=== PATIENT | male | born 2000 | race African-American/Black ===

== ENCOUNTER 2023-07-14 23:38 | Emergency (ER) | payer MEDICAID, OTHER ==
[~2023-07-14] VITALS: Ht 175.3 cm; Wt 82.3 kg
[2023-07-15 00:08] VITALS: BP 131/56; PULSE 61; RESP 17; TEMP 98.3; O2SAT 99
== END 2023-07-15 08:14 | disposition left against medical advice (07) ==
LOC: ER 23:38
DX: Z53.21 Procedure and treatment not carried out due to patient leaving prior to being seen by health care provider (principal)
CPT/HCPCS: 99281

== ENCOUNTER 2023-07-15 23:11 | Emergency (ER) | payer OTHER ==
[~2023-07-15] VITALS: Ht 177.8 cm; Wt 87.0 kg
[2023-07-15 23:21] VITALS: O2SAT 98
[2023-07-15 23:53] VITALS: BP 111/65; PULSE 78; RESP 18; TEMP 98.1
[2023-07-16] MEDS ORDERED: TETANUS AND DIPHTHERIA TOX/PF 0.5ML SYR (ADULT) IM ONE (03:00)
[2023-07-16 03:26] LABS: ALANINE AMINOTRANSFERASE 13 IU/L (10-49); ALBUMIN 4.4 g/dL (3.2-4.8); ASPARTATE AMINOTRANSFERASE 56 IU/L (<34); BILIRUBIN TOTAL 0.8 mg/dL (0.1-1.0); CALCIUM 9.7 mg/dL (8.7-10.4); CARBON DIOXIDE 29 mEq/L (21-32); CHLORIDE 104 mEq/L (98-107); CREATININE 1.1 mg/dL (0.6-1.3); GLUCOSE 87 mg/dL (70-105); POTASSIUM 3.6 mEq/L (3.5-5.1); PROTEIN TOTAL 7.8 g/dL (6.0-8.3); SODIUM 140 mEq/L (136-145); UREA NITROGEN BLOOD 13 mg/dL (9-23)
[2023-07-16 04:41] LABS: ERYTHROCYTE SEDIMENTATION RATE 4 mm/hr (0-15)
[2023-07-16 04:59] LABS: BASOPHILS % 0.4 % (0.0-2.0); EOSINOPHILS % 0.6 % (0.0-5.0); HEMATOCRIT. 44.2 % (42.0-52.0); HEMOGLOBIN. 14.8 g/dL (14.0-18.0); LYMPHOCYTES % 37.5 % (20.0-50.0); MEAN CORPUSCULAR HEMOGLOBIN 31.9 pg (28.0-32.0); MEAN CORPUSCULAR HGB CONC 33.4 g/dL (31.0-37.0); MEAN CORPUSCULAR VOLUME 95.4 fL (80.0-94.0); MEAN PLATELET VOLUME 8.8 fl (7.4-10.4); MONOCYTES % 7.3 % (2.0-8.0); NEUTROPHILS % 54.2 % (40.0-76.0); PLATELET 215 x1000/uL (130-400); RED BLOOD CELL COUNT 4.63 mill/uL (4.7-6.1); RED CELL DISTRIBUTION WIDTH 12.6 % (11.6-14.6); WHITE BLOOD COUNT 8.6 x1000/uL (4.5-11.0)
== END 2023-07-16 05:30 | disposition left against medical advice (07) ==
LOC: ER 23:11
DX: S61.200A Unspecified open wound of right index finger without damage to nail, initial encounter (principal); M79.89 Other specified soft tissue disorders; X58.XXXA Exposure to other specified factors, initial encounter; Y93.89 Activity, other specified; Y92.89 Other specified places as the place of occurrence of the external cause; Y99.8 Other external cause status
CPT/HCPCS: 36415; 73140; 80053; 85025; 85651; 90714; 99284

== ENCOUNTER 2023-07-18 15:21 | Emergency (ER) | payer OTHER ==
[~2023-07-18] VITALS: Ht 180.3 cm; Wt 74.0 kg
[2023-07-18 15:28] VITALS: BP 144/76; PULSE 87; RESP 20; TEMP 98.2; O2SAT 99
[2023-07-18] MEDS ORDERED: BACITRACIN ZINC OINT UDPKT TOP ONE (17:00)
[2023-07-18] MEDS ORDERED: LIDOCAINE HCL/PF 1% 10 MG/ML 5ML VIAL INFIL ONE (17:00)
[2023-07-19] MEDS ORDERED: CEPH500C2 MT (12:08)
[2023-07-19] MEDS ORDERED: SULF1TAB47 MT (12:08)
== END 2023-07-18 18:41 | disposition left against medical advice (07) ==
LOC: ER 15:21
DX: M79.644 Pain in right finger(s) (principal)
CPT/HCPCS: 99281

== ENCOUNTER 2023-07-19 11:05 | Emergency (ER) | payer OTHER ==
[~2023-07-19] VITALS: Ht 175.3 cm; Wt 84.0 kg
[2023-07-19 11:22] VITALS: O2SAT 100
[2023-07-19] MEDS ORDERED: SULF1TAB47 MT (12:08)
[2023-07-19] MEDS ORDERED: CEPH500C2 MT (12:08)
[2023-07-19] MEDS ORDERED: TETANUS, DIPHTHERIA, PERTUSSIS VAC/PF 0.5ML (>10YR OLD) IM ONE (12:15)
[2023-07-19 13:08] VITALS: BP 116/51; PULSE 69; RESP 14; TEMP 98.4
== END 2023-07-19 13:55 | disposition home or self-care (01) ==
LOC: ER 11:05
DX: L03.011 Cellulitis of right finger (principal)
CPT/HCPCS: 73140; 90471; 90715; 99283

== ENCOUNTER 2025-05-19 06:07 | Emergency (ER) | payer MEDICAID ==
[~2025-05-19] VITALS: Ht 182.9 cm; Wt 93.0 kg
[~2025-05-19 06:07] MED LIST: CEPH500C2 MT; SULF1TAB47 MT
[2025-05-19 06:13] VITALS: O2SAT 99
[2025-05-19] MEDS: LIDOCAINE HCL 1% 20ML VIAL INFIL ONE (06:55)
[2025-05-19 07:00] VITALS: BP 129/83; PULSE 60; RESP 18; TEMP 36.9; O2SAT 100
== END 2025-05-19 07:27 | disposition home or self-care (01) ==
LOC: ER 06:07
DX: T16.1XXA Foreign body in right ear, initial encounter (principal); W44.F4XA Insect entering into or through a natural orifice, initial encounter
CPT/HCPCS: 99284; 69200; J2003